=== PATIENT | male | born 1995 | race Caucasian/White ===

== ENCOUNTER 2017-03-17 15:02 | Inpatient (IN) | payer OTHER ==
[2017-03-17] MEDS ORDERED: PROMETHAZINE HCL 25 MG TABLET PO ONE (15:22)
[2017-03-17] MEDS ORDERED: ACETAMINOPHEN 325 MG TABLET PO ONE (15:22)
[2017-03-17] MEDS ORDERED: ONDANSETRON 4 MG TAB.RAPDIS PO ONE (15:22)
--- NOTE | 2017-03-17 15:23 | ER Document Report ---
ED Medical Screen (RME) - General Chief Complaint: Abdominal Pain Stated Complaint: STOMACH PAIN Time Seen by Provider: 03/17/17 15:21 Notes: Yesterday, patient says he began to experience feeling full and not having any appetite and did not eat dinner. This morning, he is having pain in the epigastric region of his abdomen. Pain is constant and sharp. He denies nausea or vomiting or diarrhea. Denies any UTI symptoms. No fever. Has not had any abdominal surgeries. Has never had this pain before. TRAVEL OUTSIDE OF THE [place] IN LAST 30 DAYS: No - Related Data Allergies/Adverse Reactions: No Known Allergies Allergy (Verified 03/17/17 15:14) Past Medical History Renal/ Medical History: Denies: Hx Peritoneal Dialysis Physical Exam - Vital signs Vitals: Temp Pulse Resp BP Pulse Ox 98.1 F 80 20 149/96 H 96 03/17/17 15:13 03/17/17 15:13 03/17/17 15:13 03/17/17 15:13 03/17/17 15:13 Course - Vital Signs Vital signs: Temp Pulse Resp BP Pulse Ox 98.1 F 80 20 149/96 H 96 03/17/17 15:13 03/17/17 15:13 03/17/17 15:13 03/17/17 15:13 03/17/17 15:13
[2017-03-17 16:14] LABS: HEMATOCRIT 53.7 % (37.9-51.0); HEMOGLOBIN 18.9 g/dL (13.5-17.0); MEAN CORPUSCULAR HEMOGLOBIN 31.1 pg (27.0-33.4); MEAN CORPUSCULAR HGB CONC 35.1 g/dL (32.0-36.0); MEAN CORPUSCULAR VOLUME 89 fl (80-97); RED BLOOD COUNT 6.06 10^6/uL (4.35-5.55); RED CELL DISTRIBUTION WIDTH 13.5 % (11.5-14.0); WHITE BLOOD COUNT 12.2 10^3/uL (4.0-10.5)
[2017-03-17 16:27] LABS: BILIRUBIN,DIRECT 0.9 mg/dL (0.0-0.4); BILIRUBIN,TOTAL 1.5 mg/dL (0.2-1.3); CARBON DIOXIDE 19 mmol/L (22-30); CHLORIDE 99 mmol/L (98-107); CREATININE RESULT 0.72 mg/dL (0.52-1.25); GLUCOSE 284 mg/dL (75-110); TOTAL PROTEIN 9.9 g/dL (6.3-8.2)
[2017-03-17 16:35] LABS: BASOPHILS % (MANUAL) 0 % (0-2); EOSINOPHILS % (MANUAL) 2 % (0-6); LYMPHOCYTES % (MANUAL) 12 % (13-45); TOTAL CELLS COUNTED 100
[2017-03-17 16:36] LABS: APPEARANCE,URINE CLEAR; GLUCOSE, URINE 150 mg/dL (NEGATIVE)
[2017-03-17 16:37] LABS: BILIRUBIN,URINE NEGATIVE (NEGATIVE); KETONES,URINE 300 mg/dL (NEGATIVE); LEUKOCYTE ESTERASE,URINE SMALL (NEGATIVE); NITRITE,URINE NEGATIVE (NEGATIVE); PROTEIN,URINE >=500 mg/dL (NEGATIVE); RBC MORPHOLOGY COMMENT NORMO-CYTIC/CHROMIC; URINE SPECIFIC GRAVITY 1.044; UROBILINOGEN,URINE NEGATIVE mg/dL (<2.0)
[2017-03-17 16:41] LABS: SODIUM 138.6 mmol/L (137-145)
[2017-03-17 16:59] LABS: ANION GAP 21 (5-19); LIPASE 6638.5 U/L (23-300)
[2017-03-17 17:29] LABS: POTASSIUM 5.3 mmol/L (3.6-5.0)
[2017-03-17 17:30] LABS: ALKALINE PHOSPHATASE 119 U/L (38-126); ASPARTATE AMINO TRANSFERASE 40 U/L (17-59); BLOOD UREA NITROGEN 10 mg/dL (7-20)
[2017-03-17 17:31] LABS: ALANINE AMINOTRANSFERASE 163 U/L (21-72)
[2017-03-17 18:51] LABS: ADD ON TESTING BLD IN LAB ACKNOWLEDGE
[2017-03-17] MEDS ORDERED: MORPHINE SULFATE 10 MG/ML INJ IV ONE ×2 (18:56→19:47)
[2017-03-17] MEDS ORDERED: ONDANSETRON HCL INJ/PF 4 MG/2 ML SDV IV ONE (18:56)
--- NOTE | 2017-03-17 18:56 | ER Document Report ---
ED GI/ - General Mode of Arrival: Ambulatory Information source: Patient TRAVEL OUTSIDE OF THE [place] IN LAST 30 DAYS: No - HPI Patient complains to provider of: Abdominal pain Onset: Other - Refer to HPI note Location: Epigastric Associated symptoms: Loss of appetite, Nausea, Urinary frequency <RICHA ROSENBAUM - Last Filed: 03/17/17 20:17> <BALAJI MARROQUIN - Last Filed: 03/17/17 20:49> - General Chief Complaint: Abdominal Pain Stated Complaint: STOMACH PAIN Time Seen by Provider: 03/17/17 15:21 Notes: Patient is a 22 year old male presenting to the emergency department for epigastric pain and lack of appetite. Patient had no appetite yesterday and today had the epigastric pain onset as well as lack of thirst. Patient's spouse also states the patient has had increased thirst for several weeks but not today ; patient states he also has had frequent urination for several weeks. Patient does not have a primary care physician but states he plans on going [place] the [place] [facility] because he is former . Patient has no known allergies and does not take any regular medications. (RICHA ROSENBAUM) - Related Data Allergies/Adverse Reactions: No Known Allergies Allergy (Verified 03/17/17 15:24) Home Medications: Current Home Medications No Home Medications 03/17/17 [History] Past Medical History - General Information source: Patient - Social History Smoking Status: Never Smoker Cigarette use (# per day): No Chew tobacco use (# tins/day): No Frequency of alcohol use: None Drug Abuse: None Family History: None Patient has suicidal ideation: No Patient has homicidal ideation: No - Medical History Medical History: Negative Surgical Hx: Negative <RICHA ROSENBAUM - Last Filed: 03/17/17 20:17> Review of Systems - Review of Systems Constitutional: No symptoms reported EENT: No symptoms reported Cardiovascular: No symptoms reported Respiratory: No symptoms reported Gastrointestinal: See HPI, Abdominal pain, Nausea, Poor appetite, Poor fluid intake, Other - increased thirst Genitourinary: See HPI, Frequency Male Genitourinary: No symptoms reported Musculoskeletal: No symptoms reported Skin: No symptoms reported Hematologic/Lymphatic: No symptoms reported Neurological/Psychological: No symptoms reported -: Yes All other systems reviewed and negative <RICHA ROSENBAUM - Last Filed: 03/17/17 20:17> Physical Exam - Vital signs Interpretation: Normal <RICHA ROSENBAUM - Last Filed: 03/17/17 20:17> <BALAJI MARROQUIN - Last Filed: 03/17/17 20:49> - Vital signs Vitals: Temp Pulse Resp BP Pulse Ox 98.1 F 80 20 149/96 H 96 03/17/17 15:13 03/17/17 15:13 03/17/17 15:13 03/17/17 15:13 03/17/17 15:13 - Notes Notes: GENERAL: Alert, interacts well, appears uncomfortable. HEAD: Normocephalic, atraumatic. EYES: Pupils equal, round, and reactive to light. Extraocular movements intact. ENT: Oral mucosa moist, tongue midline. NECK: Full range of motion. Supple. Trachea midline. LUNGS: Clear to auscultation bilaterally, no wheezes, rales, or rhonchi. No respiratory distress. HEART: Regular rate and rhythm. No murmurs, gallops, or rubs. ABDOMEN: Soft, pain and tenderness with palpation to the epigastric and hypogastric region. Non-distended. Bowel sounds present in all 4 quadrants. EXTREMITIES: Moves all 4 extremities spontaneously. No edema. NEUROLOGICAL: Alert and oriented x3. Normal speech. PSYCH: Normal affect, normal mood. SKIN: Warm, dry, normal turgor. No rashes or lesions noted. (RICHA ROSENBAUM) Course - Laboratory Result Diagrams: 03/17/17 15:55 03/17/17 15:55 <RICHA ROSENBAUM - Last Filed: 03/17/17 20:17> - Laboratory Result Diagrams: 03/17/17 15:55 03/17/17 15:55 - Consults Dr. River Time consulted: 20:45 Consulted provider: will come to ER <BALAJI MARROQUIN - Last Filed: 03/17/17 20:49> - Vital Signs Vital signs: Temp Pulse Resp BP Pulse Ox 98.1 F 80 20 154/92 H 94 03/17/17 15:13 03/17/17 15:13 03/17/17 20:32 03/17/17 20:32 03/17/17 20:32 - Laboratory Laboratory results interpreted by me: 0703/17/17 03/17/17 15:55 15:55 15:55 WBC 12.2 H RBC 6.06 H Hgb 18.9 H Hct 53.7 H Seg Neuts % (Manual) 79 H Lymphocytes % (Manual) 12 L Abs Neuts (Manual) 9.6 H Potassium 5.3 H Carbon Dioxide 19 L Anion Gap 21 H Glucose 284 H Total Bilirubin 1.5 H Direct Bilirubin 0.9 H ALT 163 H Total Protein 9.9 H Triglycerides Lipase 6638.5 H Urine Protein >=500 H Urine Glucose (UA) 150 H Urine Ketones 300 H Urine Blood SMALL H Ur Leukocyte Esterase SMALL H 03/17/17 15:55 WBC RBC Hgb Hct Seg Neuts % (Manual) Lymphocytes % (Manual) Abs Neuts (Manual) Potassium Carbon Dioxide Anion Gap Glucose Total Bilirubin Direct Bilirubin ALT Total Protein Triglycerides 4234 H Lipase Urine Protein Urine Glucose (UA) Urine Ketones Urine Blood Ur Leukocyte Esterase Discharge <RICHA ROSENBAUM - Last Filed: 03/17/17 20:17> - Discharge Admitting Provider: Hospitalist Unit Admitted: Medical Floor <BALAJI MARROQUIN - Last Filed: 03/17/17 20:49> - Discharge Clinical Impression: Hyperglyceridemia Pancreatitis Qualifiers: Chronicity: acute Pancreatitis type: other Acute pancreatitis complication: no infection or necrosis Qualified Code(s): K85.80 - Other acute pancreatitis without necrosis or infection Diabetes mellitus Qualifiers: Diabetes mellitus type: due to underlying condition Diabetes mellitus complication status: with unspecified complications Diabetes mellitus extermination inspector insulin use: without retirement use Qualified Code(s): E08.8 - Diabetes mellitus due to underlying condition with unspecified complications Condition: Stable Disposition: ADMITTED INPATIENT Scribe Documentation - Scribe Written by Scribe:: Tamika Stoll 03/17/2017 acting as scribe for :: Daniele <RICHA ROSENBAUM - Last Filed: 03/17/17 20:17>
[2017-03-17 19:14] LABS: CREATINE KINASE 124 U/L (55-170); MAGNESIUM 1.9 mg/dL (1.6-2.3)
[2017-03-17] MEDS: NORMAL SALINE 1000 ML 1,000 ML IV PRN (19:28)
[2017-03-17 19:41] LABS: VENOUS BLOOD BASE EXCESS -2.9 mmol/L; VENOUS BLOOD HCO3 23.6 mmol/L (20-32); VENOUS BLOOD PCO2 46.9 mmHg (35-63); VENOUS BLOOD PH 7.32 (7.30-7.42)
--- NOTE | 2017-03-17 20:40 | RADIOLOGY REPORT (SQ) ---
EXAM DESCRIPTION: U/S ABDOMEN LIMITED W/O DOP COMPLETED DATE/TIME: 03/17/2017 8:26 pm REASON FOR STUDY: acute pancreatitis COMPARISON: None. TECHNIQUE: Dynamic and static grayscale images acquired of the abdomen and recorded on PACS. Additio nal selected color Doppler and spectral images recorded. LIMITATIONS: Study is limited secondary to body habitus and overlying bowel gas. FINDINGS: PANCREAS: Visualized portions of the pancreas are normal in appearance. LIVER: Echotexture is coarse with increased echogenicity consistent with fatty infiltration. LIVER VASCULATURE: Normal directional flow of the main portal vein and hepatic veins. GALLBLADDER: No stones. Normal wall thickness. No pericholecystic fluid. ULTRASOUND-DETECTED PINEDA'S SIGN: Negative. INTRAHEPATIC DUCTS AND COMMON DUCT: CBD and intrahepatic ducts normal caliber. No filling defects. INFERIOR VENA CAVA: Normal flow. AORTA: Visualized portion of the aorta are unremarkable. RIGHT KIDNEY: Normal size. Normal echogenicity. No solid or suspicious masses. No hydronephrosis. No calcifications. PERITONEAL AND RIGHT PLEURAL SPACE: No ascites or effusions. OTHER: No other significant finding. IMPRESSION: Limited study. There is fatty infiltration of the liver. Visualized portion of the ford creas are unremarkable. TECHNICAL DOCUMENTATION: JOB ID: [id number] [employer]- All Rights Reserved
[2017-03-17] MEDS ORDERED: DEXTROSE 50%-WATER 25 GM/50 ML DISP.SYRIN IV PRN ×2 (20:48)
[2017-03-17] MEDS ORDERED: DEXTROSE 40% GEL 15 GM TUBE PO PRN ×2 (20:48)
[2017-03-17] MEDS ORDERED: GLUCAGON,HUMAN RECOMB 1 MG INJ IM PRN (20:48)
[2017-03-17] MEDS ORDERED: ACETAMINOPHEN 325 MG TABLET PO PRN (20:49)
[2017-03-17] MEDS ORDERED: NORMAL SALINE 1000 ML 1,000 ML IV SCH (21:00)
[2017-03-17] MEDS ORDERED: ONDANSETRON HCL INJ/PF 4 MG/2 ML SDV IV PRN (21:02)
[2017-03-17] MEDS: ATORVASTATIN CALCIUM 80 MG TABLET PO SCH (22:00)
[2017-03-17] MEDS ORDERED: GEMFIBROZIL 600 MG TABLET PO ONE (22:00)
[2017-03-17] MEDS: HEPARIN SOD (PORCINE) 5,000 UNIT/ML 1 ML SYRINGE SUBCUT SCH (22:00)
[2017-03-17] MEDS ORDERED: KETOROLAC TROMETHAMINE INJ/PF 30 MG/1 ML SDV IV PRN (23:55)
[2017-03-17] MEDS ORDERED: KETOROLAC TROMETHAMINE INJ/PF 30 MG/1 ML SDV IV ONE (23:56)
[2017-03-17] MEDS ORDERED: KETOROLAC TROMETHAMINE INJ/PF 30 MG/1 ML SDV ONE (23:59)
[2017-03-18] MEDS: NORMAL SALINE 1000 ML 1,000 ML IV PRN (00:01)
[2017-03-18] MEDS: INSULIN LISPRO 100 UNIT/ML 3 ML VIAL SUBCUT PRN ×2 (00:47→06:57)
--- NOTE | 2017-03-18 04:35 | PDOC H&P ---
History of Present Illness Admission Date/PCP: 03/17/17 20:49 Patient complains of: Epigastric pain History of Present Illness: MARIA T DE OLIVEIRA is a 22 year old male without past medical history who had been in his usual state of health until approximately a month ago noting excessive hunger and thirst as well as weight loss culminating in abdominal pain of the last 48 hours prompting to seek evaluation emergency room where he was found to have acute pancreatitis with hypertriglyceridemia and new diagnosis of diabetes. He admits abdominal pain worse with p.o. intake, denies chest pain or shortness of breath is referred to the hospitalist for admission. He denies any current medications, alcohol or recent viral prodrome. Past Medical History Medical History: None Past Surgical History Past Surgical History: Reports: Orthopedic Surgery - Lt knee acl Social History Information Source: Patient Lives with: Family Smoking Status: Never Smoker Frequency of Alcohol Use: None Hx Recreational Drug Use: No Hx Prescription Drug Abuse: No - Advance Directive Resuscitation Status: Full Code Family History Family History: DM Parental Family History Reviewed: Yes Children Family History Reviewed: Yes Sibling(s) Family History Reviewed.: Yes Medication/Allergy Home Medications: No Home Medications 03/17/17 Allergies/Adverse Reactions: No Known Allergies Allergy (Verified 03/17/17 15:24) Review of Systems Constitutional: PRESENT: as per HPI, fatigue, weight loss Eyes: ABSENT: visual disturbances Ears: ABSENT: hearing changes Cardiovascular: ABSENT: chest pain, dyspnea on exertion, edema, orthropnea, palpitations Respiratory: ABSENT: cough, hemoptysis Gastrointestinal: PRESENT: abdominal pain, bloating, nausea. ABSENT: coffee ground emesis, constipation, diarrhea, dysphagia, heartburn, hematemesis, hematochezia Genitourinary: ABSENT: dysuria, hematuria Musculoskeletal: ABSENT: joint swelling Integumentary: ABSENT: rash, wounds Neurological: ABSENT: abnormal gait, abnormal speech, confusion, dizziness, focal weakness, syncope Psychiatric: ABSENT: anxiety, depression, homidical ideation, suicidal ideation Endocrine: PRESENT: polydipsia, polyphagia, polyuria. ABSENT: cold intolerance , flushing, heat intolerance, menstrual abnormalities Hematologic/Lymphatic: ABSENT: easy bleeding, easy bruising Physical Exam Vital Signs: Temp Pulse Resp BP Pulse Ox 98.8 F 92 16 146/86 H 96 03/18/17 01:49 03/18/17 01:49 03/18/17 01:49 03/18/17 01:49 03/18/17 01:49 Intake & Output 03/16/17 03/17/17 03/18/17 11:59 11:59 11:59 Intake Total 2000 Output Total 400 Balance 1600 Weight 98.8 kg General appearance: PRESENT: cooperative, mild distress. ABSENT: disheveled Head exam: PRESENT: atraumatic, normocephalic Eye exam: PRESENT: conjunctiva pink, EOMI, PERRLA. ABSENT: scleral icterus Ear exam: PRESENT: normal external ear exam Mouth exam: PRESENT: dry mucosa, tongue midline Neck exam: ABSENT: carotid bruit, JVD, lymphadenopathy, thyromegaly Respiratory exam: PRESENT: clear to auscultation lai. ABSENT: rales, rhonchi, wheezes Cardiovascular exam: PRESENT: RRR. ABSENT: diastolic murmur, rubs, systolic murmur Pulses: PRESENT: normal dorsalis pedis pul Vascular exam: PRESENT: normal capillary refill GI/Abdominal exam: PRESENT: hyperactive bowel sounds, tenderness - Epigastric tenderness. ABSENT: ascites, diminished bowel sounds, firm, guarding, hernia, Elizabeth's sign, normal bowel sounds Rectal exam: PRESENT: deferred Extremities exam: PRESENT: full ROM. ABSENT: calf tenderness, clubbing, pedal edema Neurological exam: PRESENT: alert, awake, oriented to person, oriented to place , oriented to time, oriented to situation, CN II-XII grossly intact. ABSENT: motor sensory deficit Psychiatric exam: PRESENT: appropriate affect, normal mood. ABSENT: homicidal ideation, suicidal ideation Skin exam: PRESENT: dry, intact, warm. ABSENT: cyanosis, rash Results Impressions: Abdomen Ultrasound 03/17/17 19:38 IMPRESSION: Limited study. There is fatty infiltration of the liver. Visualized portion of the pancreas are unremarkable. Assessment & Plan - Diagnosis (1) Diabetes Qualifiers: Diabetes mellitus type: due to underlying condition Diabetes mellitus complication status: with unspecified complications Diabetes mellitus truck terminal manager insulin use: without [facility] use Qualified Code(s): E08.8 - Diabetes mellitus due to underlying condition with unspecified complications; Z79.4 - joint terminal attack controller (current) use of insulin Is this a current diagnosis for this admission?: YesPlan: Sliding scale insulin while, lisinopril n.p.o., obtain A1c and patient education (2) Hyperglyceridemia Is this a current diagnosis for this admission?: YesPlan: Fibroids and statin (3) Pancreatitis Qualifiers: Chronicity: acute Pancreatitis type: other Acute pancreatitis complication: no infection or necrosis Qualified Code(s): K85.80 - Other acute pancreatitis without necrosis or infection; K85.8 - Other acute pancreatitis Is this a current diagnosis for this admission?: YesPlan: Secondary to hypertriglyceridemia. IV fluids, bowel rest, advance diet as tolerated, follow-up Chem-12 (4) Abdominal pain Is this a current diagnosis for this admission?: YesPlan: Symptomatic management - Time Time Spent: 50 to 70 Minutes - Inpatient Certification Medical Necessity: Need Close Monitoring Due to Risk of Patient Decompensation
[2017-03-18] MEDS: HEPARIN SOD (PORCINE) 5,000 UNIT/ML 1 ML SYRINGE SUBCUT SCH ×3 (05:47→21:29)
[2017-03-18 05:52] LABS: ABSOLUTE BASOPHILS # (AUTO) 0.1 10^3/uL (0.0-0.2); ABSOLUTE LYMPHOCYTES (AUTO) 1.2 10^3/uL (0.5-4.7); ABSOLUTE MONOCYTES (AUTO) 0.9 10^3/uL (0.1-1.4); ABSOLUTE NEUT (AUTO) 9.8 10^3/uL (1.7-8.2); BASOPHILS % (AUTO) 0.5 % (0-2); EOSINOPHILS % (AUTO) 0.2 % (0-6); LYMPHOCYTES % (AUTO) 10.1 % (13-45); MEAN CORPUSCULAR HEMOGLOBIN 29.7 pg (27.0-33.4); MEAN CORPUSCULAR HGB CONC 33.3 g/dL (32.0-36.0); MEAN CORPUSCULAR VOLUME 89 fl (80-97); MONOCYTES % (AUTO) 7.2 % (3-13); RED BLOOD COUNT 5.72 10^6/uL (4.35-5.55); RED CELL DISTRIBUTION WIDTH 13.6 % (11.5-14.0)
[2017-03-18 06:12] LABS: ALANINE AMINOTRANSFERASE 124 U/L (21-72); ALKALINE PHOSPHATASE 92 U/L (38-126); ANION GAP 17 (5-19); ASPARTATE AMINO TRANSFERASE 23 U/L (17-59); BILIRUBIN,DIRECT 0.6 mg/dL (0.0-0.4); BLOOD UREA NITROGEN 8 mg/dL (7-20); CALCIUM 8.2 mg/dL (8.4-10.2); CARBON DIOXIDE 14 mmol/L (22-30); CHLORIDE 108 mmol/L (98-107); CREATININE RESULT 0.66 mg/dL (0.52-1.25); GLUCOSE 227 mg/dL (75-110); POTASSIUM 5.1 mmol/L (3.6-5.0); SODIUM 138.8 mmol/L (137-145); TOTAL PROTEIN 7.5 g/dL (6.3-8.2)
[2017-03-18 06:31] LABS: LIPASE 7324.1 U/L (23-300)
[2017-03-18] MEDS ORDERED: NORMAL SALINE 1000 ML 1,000 ML IV PRN (06:34)
[2017-03-18] MEDS: LISINOPRIL 5 MG TABLET PO SCH (09:25)
[2017-03-18] MEDS: HYDROMORPHONE HCL INJ/PF 2 MG/ML AMPULE IV PRN ×4 (09:25→23:47)
--- NOTE | 2017-03-18 14:14 | PDOC PROGRESS REPORT ---
Subjective Progress Note for:: 03/18/17 Subjective:: Complains of left upper quadrant abdominal pain. Physical Exam Vital Signs: Temp Pulse Resp BP Pulse Ox 98.7 F 115 H 15 137/70 H 96 03/18/17 11:46 03/18/17 11:46 03/18/17 11:46 03/18/17 11:46 03/18/17 11:46 Intake & Output 03/17/17 03/18/17 03/19/17 06:59 06:59 06:59 Intake Total 2300 Output Total 775 Balance 1525 Weight 98.8 kg General appearance: PRESENT: no acute distress Eye exam: PRESENT: conjunctiva pink. ABSENT: scleral icterus Mouth exam: PRESENT: moist, tongue midline Neck exam: ABSENT: carotid bruit, JVD, lymphadenopathy, thyromegaly Respiratory exam: PRESENT: clear to auscultation lai. ABSENT: rales, rhonchi, wheezes Cardiovascular exam: PRESENT: RRR. ABSENT: diastolic murmur, rubs, systolic murmur GI/Abdominal exam: PRESENT: normal bowel sounds, soft, tenderness - Moderate left upper quadrant tenderness. ABSENT: distended, guarding, mass, organolmegaly, rebound Extremities exam: ABSENT: calf tenderness, clubbing, pedal edema Neurological exam: PRESENT: alert, awake, oriented to person, oriented to place , oriented to time, oriented to situation, CN II-XII grossly intact. ABSENT: motor sensory deficit Psychiatric exam: PRESENT: appropriate affect Skin exam: PRESENT: dry, intact, warm. ABSENT: cyanosis, rash Results Laboratory Results: 03/18/17 05:09 03/18/17 05:09 03/18/17 03/18/17 05:09 05:09 WBC 12.0 H RBC 5.72 H Hgb 17.0 Hct 51.0 MCV 89 MCH 29.7 MCHC 33.3 RDW 13.6 Plt Count 213 Seg Neutrophils % 82.0 H Lymphocytes % 10.1 L Monocytes % 7.2 Eosinophils % 0.2 Basophils % 0.5 Absolute Neutrophils 9.8 H Absolute Lymphocytes 1.2 Absolute Monocytes 0.9 Absolute Eosinophils 0.0 Absolute Basophils 0.1 Sodium 138.8 Potassium 5.1 H Chloride 108 H Carbon Dioxide 14 L Anion Gap 17 BUN 8 Creatinine 0.66 Est GFR ( Amer) > 60 Est GFR (Non-Af Amer) > 60 Glucose 227 H Calcium 8.2 L Total Bilirubin 1.0 AST 23 ALT 124 H Alkaline Phosphatase 92 Total Protein 7.5 Albumin 4.0 Lipase 7324.1 H Impressions: Abdomen Ultrasound 03/17/17 19:38 IMPRESSION: Limited study. There is fatty infiltration of the liver. Visualized portion of the pancreas are unremarkable. Assessment & Plan - Diagnosis (1) Pancreatitis Qualifiers: Chronicity: acute Pancreatitis type: other Acute pancreatitis complication: no infection or necrosis Qualified Code(s): K85.80 - Other acute pancreatitis without necrosis or infection; K85.8 - Other acute pancreatitis Is this a current diagnosis for this admission?: YesPlan: Continue with n.p.o., IV fluids, narcotics. (2) Diabetes Qualifiers: Diabetes mellitus type: due to underlying condition Diabetes mellitus complication status: with unspecified complications Diabetes mellitus dedicated intermodal truck driver insulin use: without jail use Qualified Code(s): E08.8 - Diabetes mellitus due to underlying condition with unspecified complications; Z79.4 - terminal gauger (current) use of insulin Is this a current diagnosis for this admission?: YesPlan: Continue with sliding scale insulin. (3) Hyperglyceridemia Is this a current diagnosis for this admission?: YesPlan: Continue with Lopid - Time Time Spent with patient: 25-34 minutes - Inpatient Certification Medical Necessity: Need For IV Fluids, Need for Pain Control
[2017-03-18] MEDS ORDERED: NORMAL SALINE 1000 ML 3,000 ML IV PRN (16:35)
[2017-03-18] MEDS: ATORVASTATIN CALCIUM 80 MG TABLET PO SCH (21:29)
[2017-03-19] MEDS: HYDROMORPHONE HCL INJ/PF 2 MG/ML AMPULE IV PRN ×4 (03:59→21:45)
--- NOTE | 2017-03-19 04:43 | RADIOLOGY REPORT (SQ) ---
EXAM DESCRIPTION: CT ABD/PELVIS WITH IV ORAL COMPLETED DATE/TIME: 03/19/2017 4:22 am REASON FOR STUDY: Abdominal pain, elevated heart rate COMPARISON: Ultrasound, 03/17/2017. TECHNIQUE: CT scan of the abdomen and pelvis performed using helical scanning technique with dynamic intravenous contrast injection. No oral contrast. Images reviewed with lung, soft tissue, and bone windows. Reconstructed coronal and sagittal MPR images reviewed. Delayed images for evaluation of the urinary system also acquired. All images stored on PACS. All CT scanners at this facility use dose modulation, iterative reconstruction, and/or weight based d osing when appropriate to reduce radiation dose to as low as reasonably achievable (ALARA). [facility]: Dose Right [facility]: CareDose [facility]: Dose Right [facility]: Teradose 4D [facility]: DrFirst CONTRAST TYPE AND DOSE: contrast/concentration: Isovue 370.00 mg/ml; Total Contrast Delivered: 100.0 ml; Total Saline Delivered: 72.0 ml RENAL FUNCTION: Creatinine 0.7. RADIATION DOSE: Up-to-date CT equipment and radiation dose reduction techniques were employed. CTDIv ol: 18.4 - 21.0 mGy. DLP: 2299 mGy-cm.. LIMITATIONS: None. FINDINGS: LOWER CHEST: Small dependent atelectasis -consolidate of bilateral lower lobes small scar -fibrosis of the lingula. Small left pleural effusion. LIVER: Moderate hepatic steatosis. SPLEEN: Normal size. No focal lesions. PANCREAS: No masses. No significant calcifications. No adjacent inflammation or peripancreatic fluid collections. Pancreatic duct not dilated. GALLBLADDER: No identified stones by CT criteria. No inflammatory changes to suggest cholecystitis. ADRENAL GLANDS: No significant masses or asymmetry. RIGHT KIDNEY AND URETER: No solid masses. No significant calcifications. No hydronephrosis or hyd roureter. LEFT KIDNEY AND URETER: No solid masses. No significant calcifications. No hydronephrosis or hydr oureter. AORTA AND VESSELS: No aneurysm. No dissection. Renal arteries, SMA, celiac without stenosis. RETROPERITONEUM: No retroperitoneal adenopathy, hemorrhage or masses. BOWEL AND PERITONEAL CAVITY: Small to moderate ascites. Contrast filled colon. [id number]-prlzawrr lym phadenopathy of the right lower abdominal quadrant includes a lymph node measuring 1.5 x 0.9 cm, imag e 54 series 3. APPENDIX: Normal. PELVIS: No mass or free fluid. Normal bladder. ABDOMINAL WALL: No masses. No hernias. BONES: No significant or acute findings. OTHER: No other significant finding. IMPRESSION: 1. Small to moderate multifocal bibasilar consolidate, atelectasis, and/or scar. 2. S mall ascites. Mild lymphadenopathy of the right lower abdominal quadrant. Infectious, inflammatory, and neoplastic processes are in the differential diagnosis. 3. Hepatic steatosis. TECHNICAL DOCUMENTATION: JOB ID: [id number] Quality ID # [id number]: Final reports with documentation of one or more dose reduction techniques (e.g., Au tomated exposure control, adjustment of the mA and/or kV according to patient size, use of iterative reconstruction technique) 2010 [employer]- All Rights Reserved
[2017-03-19] MEDS: HEPARIN SOD (PORCINE) 5,000 UNIT/ML 1 ML SYRINGE SUBCUT SCH ×3 (06:04→21:45)
[2017-03-19 07:00] LABS: ABSOLUTE LYMPHOCYTES (AUTO) 1.3 10^3/uL (0.5-4.7); ABSOLUTE NEUT (AUTO) 5.9 10^3/uL (1.7-8.2); BASOPHILS % (AUTO) 0.6 % (0-2); EOSINOPHILS % (AUTO) 0.3 % (0-6); HEMATOCRIT 51.3 % (37.9-51.0); HEMOGLOBIN 16.8 g/dL (13.5-17.0); HGB HCT DIFFERENCE -0.9; LYMPHOCYTES % (AUTO) 15.7 % (13-45); MEAN CORPUSCULAR HEMOGLOBIN 29.5 pg (27.0-33.4); MEAN CORPUSCULAR HGB CONC 32.8 g/dL (32.0-36.0); MEAN CORPUSCULAR VOLUME 90 fl (80-97); MONOCYTES % (AUTO) 12.5 % (3-13); SEGMENTED NEUTROPHILS % (AUTO) 70.9 % (42-78); WHITE BLOOD COUNT 8.3 10^3/uL (4.0-10.5)
[2017-03-19 07:19] LABS: ANION GAP 12 (5-19); BLOOD UREA NITROGEN 15 mg/dL (7-20); CALCIUM 8.4 mg/dL (8.4-10.2); CARBON DIOXIDE 18 mmol/L (22-30); CHLORIDE 105 mmol/L (98-107); CREATININE RESULT 0.99 mg/dL (0.52-1.25); GLUCOSE 231 mg/dL (75-110); POTASSIUM 4.7 mmol/L (3.6-5.0); SODIUM 135.1 mmol/L (137-145)
[2017-03-19 07:29] LABS: LIPASE 3221.2 U/L (23-300)
[2017-03-19] MEDS ORDERED: NORMAL SALINE 1000 ML 1,000 ML IV PRN (08:16)
[2017-03-19] MEDS: LISINOPRIL 5 MG TABLET PO SCH (10:56)
--- NOTE | 2017-03-19 13:53 | PDOC PROGRESS REPORT ---
Subjective Progress Note for:: 03/19/17 Subjective:: Complains of left upper quadrant abdominal pain. Physical Exam Vital Signs: Temp Pulse Resp BP Pulse Ox 98.5 F 129 H 20 123/68 93 03/19/17 07:36 03/19/17 07:36 03/19/17 07:36 03/19/17 07:36 03/19/17 07:36 Intake & Output 03/18/17 03/19/17 03/20/17 06:59 06:59 06:59 Intake Total 2300 7690 Output Total 775 1100 Balance 1525 6590 Weight 98.8 kg 101.8 kg General appearance: PRESENT: no acute distress Eye exam: PRESENT: conjunctiva pink. ABSENT: scleral icterus Mouth exam: PRESENT: moist, tongue midline Neck exam: ABSENT: JVD Respiratory exam: PRESENT: clear to auscultation lai. ABSENT: rales, rhonchi, wheezes Cardiovascular exam: PRESENT: RRR. ABSENT: diastolic murmur, rubs, systolic murmur GI/Abdominal exam: PRESENT: normal bowel sounds, soft, tenderness - Left upper quadrant tenderness. ABSENT: distended, guarding, mass, organolmegaly, rebound Extremities exam: ABSENT: calf tenderness, clubbing, pedal edema Neurological exam: PRESENT: alert, awake, oriented to person, oriented to place , oriented to time, oriented to situation, CN II-XII grossly intact. ABSENT: motor sensory deficit Psychiatric exam: PRESENT: appropriate affect Skin exam: PRESENT: dry, intact, warm. ABSENT: cyanosis, rash Results Laboratory Results: 03/19/17 05:48 03/19/17 05:48 03/19/17 03/19/17 05:48 05:48 WBC 8.3 RBC 5.70 H Hgb 16.8 Hct 51.3 H MCV 90 MCH 29.5 MCHC 32.8 RDW 14.0 Plt Count 209 Seg Neutrophils % 70.9 Lymphocytes % 15.7 Monocytes % 12.5 Eosinophils % 0.3 Basophils % 0.6 Absolute Neutrophils 5.9 Absolute Lymphocytes 1.3 Absolute Monocytes 1.0 Absolute Eosinophils 0.0 Absolute Basophils 0.0 Sodium 135.1 L Potassium 4.7 Chloride 105 Carbon Dioxide 18 L Anion Gap 12 BUN 15 Creatinine 0.99 Est GFR ( Amer) > 60 Est GFR (Non-Af Amer) > 60 Glucose 231 H Calcium 8.4 Lipase 3221.2 H Impressions: Abdomen Ultrasound 03/17/17 19:38 IMPRESSION: Limited study. There is fatty infiltration of the liver. Visualized portion of the pancreas are unremarkable. Abdomen/Pelvis CT 03/19/17 00:00 IMPRESSION: 1. Small to moderate multifocal bibasilar consolidate, atelectasis , and/or scar. 2. Small ascites. Mild lymphadenopathy of the right lower abdominal quadrant. Infectious, inflammatory, and neoplastic processes are in the differential diagnosis. 3. Hepatic steatosis. Assessment & Plan - Diagnosis (1) Pancreatitis Qualifiers: Chronicity: acute Pancreatitis type: other Acute pancreatitis complication: no infection or necrosis Qualified Code(s): K85.80 - Other acute pancreatitis without necrosis or infection; K85.8 - Other acute pancreatitis Is this a current diagnosis for this admission?: YesPlan: Continue with n.p.o., IV fluids, narcotics. (2) Diabetes Qualifiers: Diabetes mellitus type: due to underlying condition Diabetes mellitus complication status: with unspecified complications Diabetes mellitus half-way insulin use: without home care coordinator use Qualified Code(s): E08.8 - Diabetes mellitus due to underlying condition with unspecified complications; Z79.4 - timber framer (current) use of insulin Is this a current diagnosis for this admission?: YesPlan: Continue with sliding scale insulin. (3) Hyperglyceridemia Is this a current diagnosis for this admission?: YesPlan: Continue with Lopid - Time Time Spent with patient: 25-34 minutes - Inpatient Certification Medical Necessity: Need For IV Fluids, Need for Pain Control
[2017-03-19] MEDS: ATORVASTATIN CALCIUM 80 MG TABLET PO SCH (21:45)
[2017-03-20] MEDS: HYDROMORPHONE HCL INJ/PF 2 MG/ML AMPULE IV PRN ×2 (02:42→07:34)
[2017-03-20] MEDS: HEPARIN SOD (PORCINE) 5,000 UNIT/ML 1 ML SYRINGE SUBCUT SCH ×3 (05:25→21:35)
[2017-03-20 05:47] LABS: HEMATOCRIT 44.8 % (37.9-51.0); HGB HCT DIFFERENCE -0.7; MEAN CORPUSCULAR HEMOGLOBIN 29.8 pg (27.0-33.4); MEAN CORPUSCULAR HGB CONC 32.8 g/dL (32.0-36.0); MEAN CORPUSCULAR VOLUME 91 fl (80-97); RED BLOOD COUNT 4.94 10^6/uL (4.35-5.55); RED CELL DISTRIBUTION WIDTH 14.2 % (11.5-14.0); WHITE BLOOD COUNT 8.4 10^3/uL (4.0-10.5)
[2017-03-20 05:55] LABS: ANION GAP 13 (5-19); BLOOD UREA NITROGEN 15 mg/dL (7-20); CALCIUM 8.6 mg/dL (8.4-10.2); CARBON DIOXIDE 18 mmol/L (22-30); CHLORIDE 109 mmol/L (98-107); CREATININE RESULT 0.73 mg/dL (0.52-1.25); GLUCOSE 202 mg/dL (75-110); LIPASE 1359.1 U/L (23-300); POTASSIUM 4.4 mmol/L (3.6-5.0); SODIUM 140.1 mmol/L (137-145)
[2017-03-20 06:01] LABS: HEMOGLOBIN 14.7 g/dL (13.5-17.0)
[2017-03-20 06:39] LABS: BASOPHILS % (MANUAL) 0 % (0-2); EOSINOPHILS % (MANUAL) 2 % (0-6); LYMPHOCYTES % (MANUAL) 15 % (13-45); TOTAL CELLS COUNTED 100
[2017-03-20 06:40] LABS: ANISOCYTOSIS SLIGHT; TOXIC VACUOLATION PRESENT
[2017-03-20 06:44] LABS: PLATELET CLUMPS PRESENT; POLYCHROMASIA SLIGHT; TARGET CELLS SLIGHT
[2017-03-20 06:45] LABS: BAND NEUTROPHILS % (MANUAL) 14 % (3-5)
[2017-03-20] MEDS: LISINOPRIL 5 MG TABLET PO SCH (10:48)
--- NOTE | 2017-03-20 11:35 | PDOC PROGRESS REPORT ---
Subjective Progress Note for:: 03/20/17 Subjective:: Complains of left upper quadrant abdominal pain. But does report that it is better. Physical Exam Vital Signs: Temp Pulse Resp BP Pulse Ox 99.9 F 128 H 18 142/72 H 92 03/20/17 07:31 03/20/17 07:31 03/20/17 07:31 03/20/17 07:31 03/20/17 07:31 Intake & Output 03/19/17 03/20/17 03/21/17 06:59 06:59 06:59 Intake Total 7690 3450 600 Output Total 1100 406 Balance 6590 3044 600 Weight 101.8 kg 101.7 kg General appearance: PRESENT: no acute distress Eye exam: PRESENT: conjunctiva pink. ABSENT: scleral icterus Mouth exam: PRESENT: moist, tongue midline Neck exam: ABSENT: JVD Respiratory exam: PRESENT: clear to auscultation lai. ABSENT: rales, rhonchi, wheezes Cardiovascular exam: PRESENT: RRR. ABSENT: diastolic murmur, rubs, systolic murmur GI/Abdominal exam: PRESENT: normal bowel sounds, soft, tenderness - Mild left upper quadrant tenderness. ABSENT: distended, guarding, mass, organolmegaly, rebound Extremities exam: ABSENT: calf tenderness, clubbing, pedal edema Neurological exam: PRESENT: alert, awake, oriented to person, oriented to place , oriented to time, oriented to situation, CN II-XII grossly intact. ABSENT: motor sensory deficit Psychiatric exam: PRESENT: appropriate affect Skin exam: PRESENT: dry, intact, warm. ABSENT: cyanosis, rash Results Laboratory Results: 03/20/17 05:06 03/20/17 05:06 03/20/17 03/20/17 05:06 05:06 WBC 8.4 RBC 4.94 Hgb 14.7 D Hct 44.8 MCV 91 MCH 29.8 MCHC 32.8 RDW 14.2 H Plt Count 181 Seg Neutrophils % Not Reportable Lymphocytes % Not Reportable Monocytes % Not Reportable Eosinophils % Not Reportable Basophils % Not Reportable Absolute Neutrophils Not Reportable Absolute Lymphocytes Not Reportable Absolute Monocytes Not Reportable Absolute Eosinophils Not Reportable Absolute Basophils Not Reportable Sodium 140.1 Potassium 4.4 Chloride 109 H Carbon Dioxide 18 L Anion Gap 13 BUN 15 Creatinine 0.73 Est GFR ( Amer) > 60 Est GFR (Non-Af Amer) > 60 Glucose 202 H Calcium 8.6 Lipase 1359.1 H Impressions: Abdomen Ultrasound 03/17/17 19:38 IMPRESSION: Limited study. There is fatty infiltration of the liver. Visualized portion of the pancreas are unremarkable. Abdomen/Pelvis CT 03/19/17 00:00 IMPRESSION: 1. Small to moderate multifocal bibasilar consolidate, atelectasis , and/or scar. 2. Small ascites. Mild lymphadenopathy of the right lower abdominal quadrant. Infectious, inflammatory, and neoplastic processes are in the differential diagnosis. 3. Hepatic steatosis. Assessment & Plan - Diagnosis (1) Pancreatitis Qualifiers: Chronicity: acute Pancreatitis type: other Acute pancreatitis complication: no infection or necrosis Qualified Code(s): K85.80 - Other acute pancreatitis without necrosis or infection; K85.8 - Other acute pancreatitis Is this a current diagnosis for this admission?: YesPlan: Patient has shown improvement. Will DC the Dilaudid and switch to oxycodone and start him on a full liquid diet. If he tolerates a full liquid diet he can hopefully be discharged home tomorrow. (2) Diabetes Qualifiers: Diabetes mellitus type: due to underlying condition Diabetes mellitus complication status: with unspecified complications Diabetes mellitus sunglass clip attacher insulin use: without sunglass clip attacher use Qualified Code(s): E08.8 - Diabetes mellitus due to underlying condition with unspecified complications; Z79.4 - program management manager (current) use of insulin Is this a current diagnosis for this admission?: YesPlan: Continue with sliding scale insulin. (3) Hyperglyceridemia Is this a current diagnosis for this admission?: YesPlan: Continue with Lopid - Time Time Spent with patient: 25-34 minutes - Inpatient Certification Medical Necessity: Need For IV Fluids
[2017-03-20] MEDS: INSULIN LISPRO 100 UNIT/ML 3 ML VIAL SUBCUT PRN ×2 (12:46→18:57)
[2017-03-20] MEDS: OXYCODONE HCL IR 5 MG TABLET PO PRN ×2 (12:50→21:35)
[2017-03-20] MEDS: ATORVASTATIN CALCIUM 80 MG TABLET PO SCH (21:35)
[2017-03-21] MEDS: HEPARIN SOD (PORCINE) 5,000 UNIT/ML 1 ML SYRINGE SUBCUT SCH (05:29)
[2017-03-21 07:06] LABS: HEMATOCRIT 39.7 % (37.9-51.0); HGB HCT DIFFERENCE -0.7; MEAN CORPUSCULAR HEMOGLOBIN 29.4 pg (27.0-33.4); MEAN CORPUSCULAR HGB CONC 32.8 g/dL (32.0-36.0); MEAN CORPUSCULAR VOLUME 90 fl (80-97); RED BLOOD COUNT 4.43 10^6/uL (4.35-5.55); RED CELL DISTRIBUTION WIDTH 14.1 % (11.5-14.0); WHITE BLOOD COUNT 7.6 10^3/uL (4.0-10.5)
[2017-03-21 07:23] LABS: ANION GAP 12 (5-19); BLOOD UREA NITROGEN 12 mg/dL (7-20); CALCIUM 8.6 mg/dL (8.4-10.2); CARBON DIOXIDE 21 mmol/L (22-30); CHLORIDE 104 mmol/L (98-107); CREATININE RESULT 0.69 mg/dL (0.52-1.25); GLUCOSE 172 mg/dL (75-110); POTASSIUM 3.5 mmol/L (3.6-5.0); SODIUM 137.1 mmol/L (137-145)
[2017-03-21 07:45] LABS: BAND NEUTROPHILS % (MANUAL) 3 % (3-5); BASOPHILS % (MANUAL) 0 % (0-2); EOSINOPHILS % (MANUAL) 4 % (0-6); LYMPHOCYTES % (MANUAL) 23 % (13-45); TOTAL CELLS COUNTED 100
[2017-03-21 07:46] LABS: HYPOCHROMASIA SLIGHT; POLYCHROMASIA SLIGHT; TOXIC GRANULATION 1+; TOXIC VACUOLATION PRESENT
[2017-03-21] MEDS: OXYCODONE HCL IR 5 MG TABLET PO PRN (09:20)
[2017-03-21] MEDS: LISINOPRIL 5 MG TABLET PO SCH (09:20)
--- NOTE | 2017-03-21 10:44 | PDOC DISCHARGE SUMMARY ---
General - Admit/Disc Date/PCP Admission Date/Primary Care Provider: 03/17/17 20:49 Discharge Date: 03/21/17 - Discharge Diagnosis (1) Pancreatitis Is this a current diagnosis for this admission?: YesSummary: Secondary to hypertriglyceridemia (2) Diabetes Is this a current diagnosis for this admission?: YesSummary: Onset diabetes. The patient when he presented initially had an anion gap however this was probably not from ketosis he is received minimal insulin and his gap has resolved just with IV fluids. Most likely represents type 2 diabetes and he will be sent home on Glucophage. (3) Hyperglyceridemia Is this a current diagnosis for this admission?: YesSummary: Most likely has been the cause of his pancreatitis. Patient is sent home on Lipitor. - Additional Information Resuscitation Status: Full Code Discharge Diet: Diabetic Discharge Activity: Activity As Tolerated Home Medications: Atorvastatin Calcium [Lipitor 80 mg Tablet] 80 mg PO QHS #30 tablet 03/21/17 Lisinopril [Prinivil 5 mg Tablet] 5 mg PO DAILY #30 tablet 03/21/17 Metformin HCl [Glucophage] 1,000 mg PO BID #60 tablet 03/21/17 Oxycodone HCl [Oxy-Ir 5 mg Tablet] 5 mg PO Q6HP PRN #30 tablet 03/21/17 History of Present Illness History of Present Illness: MARIA T DE OLIVEIRA is a 22 year old male a previous past medical history who over the month prior to admission has been having polyphagia or polydipsia and weight loss. The patient presented to emergency room was found to have acute pancreatitis secondary to hypertriglyceridemia. Patient also had new onset diabetes. he was admitted for further management Hospital Course Hospital Course: 22-year-old gentleman with new onset diabetes. Patient also was noted have pancreatitis secondary to hypertriglyceridemia. The patient when he initially presented had some mild increase in his anion gap. Patient however was very dehydrated. With IV fluids his anion gap resolved. He has required some insulin but was not put on insulin drip. This most likely represents type 2 diabetes as he is obese and has had resolution of his anion gap without continuous insulin. Patient is only been getting sliding scale insulin. His pancreatitis was treated in usual fashion by making him n.p.o. and given IV fluids and narcotics. He had his pain improve and his diet was advanced and his narcotics changed to p.o. The patient tolerated diet without difficulty. He was noted to have hypertriglyceridemia which most likely is the cause for his pancreatitis. He was started on Lipitor and hopefully with control of his diabetes as hypertriglyceridemia should improve dramatically. Physical Exam Vital Signs: Temp Pulse Resp BP Pulse Ox 99.4 F 107 H 18 129/80 H 97 03/20/17 20:22 03/20/17 20:22 03/20/17 20:22 03/20/17 20:22 03/20/17 20:22 Intake & Output 03/20/17 03/21/17 03/22/17 06:59 06:59 06:59 Intake Total 3450 2882 Output Total 406 Balance 3044 2882 Weight 101.7 kg 101.7 kg General appearance: PRESENT: no acute distress Eye exam: PRESENT: conjunctiva pink. ABSENT: scleral icterus Mouth exam: PRESENT: moist, tongue midline Neck exam: ABSENT: JVD Respiratory exam: PRESENT: clear to auscultation lai. ABSENT: rales, rhonchi, wheezes Cardiovascular exam: PRESENT: RRR. ABSENT: diastolic murmur, rubs, systolic murmur GI/Abdominal exam: PRESENT: normal bowel sounds, soft, tenderness - Minimal left upper quadrant tenderness. ABSENT: distended, guarding, mass, organolmegaly, rebound Extremities exam: ABSENT: calf tenderness, clubbing, pedal edema Neurological exam: PRESENT: alert, awake, oriented to person, oriented to place , oriented to time, oriented to situation, CN II-XII grossly intact. ABSENT: motor sensory deficit Psychiatric exam: PRESENT: appropriate affect Skin exam: PRESENT: dry, intact, warm. ABSENT: cyanosis, rash Results Laboratory Results: 03/21/17 06:06 03/21/17 06:06 03/21/17 03/21/17 06:06 06:06 WBC 7.6 RBC 4.43 Hgb 13.0 L Hct 39.7 MCV 90 MCH 29.4 MCHC 32.8 RDW 14.1 H Plt Count 177 Seg Neutrophils % Not Reportable Lymphocytes % Not Reportable Monocytes % Not Reportable Eosinophils % Not Reportable Basophils % Not Reportable Absolute Neutrophils Not Reportable Absolute Lymphocytes Not Reportable Absolute Monocytes Not Reportable Absolute Eosinophils Not Reportable Absolute Basophils Not Reportable Sodium 137.1 Potassium 3.5 L Chloride 104 Carbon Dioxide 21 L Anion Gap 12 BUN 12 Creatinine 0.69 Est GFR ( Amer) > 60 Est GFR (Non-Af Amer) > 60 Glucose 172 H Calcium 8.6 Impressions: Abdomen Ultrasound 03/17/17 19:38 IMPRESSION: Limited study. There is fatty infiltration of the liver. Visualized portion of the pancreas are unremarkable. Abdomen/Pelvis CT 03/19/17 00:00 IMPRESSION: 1. Small to moderate multifocal bibasilar consolidate, atelectasis , and/or scar. 2. Small ascites. Mild lymphadenopathy of the right lower abdominal quadrant. Infectious, inflammatory, and neoplastic processes are in the differential diagnosis. 3. Hepatic steatosis. Qualifiers PATEINT BEING DISCHARGED WITH ANY OF THE FOLLOWING DIAGNOSIS?: No Plan Discharge Plan: Patient is given a prescription for a glucometer. [facility] gets his primary care. Time Spent: Greater than 30 Minutes
[2017-03-21 11:31] VITALS: BP 132/80
== END 2017-03-21 13:15 | disposition home or self-care (01) | DRG 440 ==
LOC: ER 15:02 → EH 20:49 → 5 03-18 01:30
PROVIDERS: ADMIT Internal Medicine; ATTEND Internal Medicine
DX: K85.80 Other acute pancreatitis without necrosis or infection (principal); E78.1 Pure hyperglyceridemia; E11.9 Type 2 diabetes mellitus without complications
CPT/HCPCS: 36415; 74177; 76705; 80048; 80053; 81001; 82550; 82803; 82962; 83036; 83690; 83735; 84478; 85025; 96361; 96374; 96375; 99285; J1170; J1644; J1815; J1885; J2270; J2405; J3490; J7030; S0119